=== PATIENT | male | born 1975 | race African-American/Black ===

== ENCOUNTER 2018-02-26 19:05 | Emergency (ER) | payer SELFPAY ==
[~2018-02-26] VITALS: Ht 175.3 cm; Wt 118.6 kg
[~2018-02-26 19:05] MED LIST: Z.0.NO CURRENT MEDS
[2018-02-26 19:09] VITALS: BP 165/81; PULSE 96; RESP 18; TEMP 100.4; O2SAT 98
[2018-02-26] MEDS ORDERED: IBUPROFEN 800 MG TAB PO ONE (19:30)
[2018-02-26] MEDS ORDERED: DEXAMETHASONE SOD PHOS 4 MG/ML VIAL IM ONE (19:30)
[2018-02-26] MEDS ORDERED: AMOXICILLIN/CLAVULANATE K 875 MG TAB PO ONE (19:30)
[2018-02-26] MEDS ORDERED: AUGM875T3 PO (19:44)
--- NOTE | 2018-02-26 19:44 | PD ---
HPI Chief Complaint: ENT Complaint Time Seen by Provider: 19:17 Travel History International Travel<30 days: No Contact w/Intl Traveler<30days: No Traveled to known affect area: No History of Present Illness HPI 42-year-old male here with sore throat 2 days. Subjective fever. No difficulty swallowing although swelling elicits pain. Symptom severity is moderate. No alleviating factors. No associating symptoms. PFSH Past Medical History Medical History: Denies Significant Hx Diminished Hearing: No Tetanus Vaccination: < 5 Years Influenza Vaccination: No ?: Not Social History Alcohol Use: No Tobacco Use: No Substance Use: No Allergies-Medications (Allergen,Severity, Reaction): Coded Allergies: No Known Allergies (Verified , 11/13/12) Reported Meds & Prescriptions Reported Meds & Active Scripts Active Augmentin (Amoxicillin-Clavulanate) 875-125 Mg Tab 1 Tab PO BID Reported No Current Meds (Miscellaneous Medication) Misc Review of Systems Except as stated in HPI: all other systems reviewed are Neg General / Constitutional: Positive: Fever Eyes: No: Visual changes HENT: Positive: Sore Throat Cardiovascular: No: Chest Pain or Discomfort Respiratory: No: Shortness of Breath Gastrointestinal: No: Abdominal Pain Genitourinary: No: Dysuria Physical Exam Narrative GENERAL: Alert and well-appearing 42-year-old male SKIN: Warm and dry. HEAD: Normocephalic. EYES: No scleral icterus. No injection or drainage. ENT: Pharyngeal erythema with moderate tonsillar hypertrophy and scant exudate. Uvula is midline. Airways patent. Normal phonation. Mucous members are moist. NECK: Supple, trachea midline. No lymphadenopathy. CARDIOVASCULAR: Regular rate and rhythm without murmurs, gallops, or rubs. RESPIRATORY: Breath sounds equal bilaterally. No accessory muscle use. GASTROINTESTINAL: Abdomen soft, non-tender, nondistended. MUSCULOSKELETAL: No cyanosis, or edema. BACK: No CVA tenderness. Data Data Last Documented VS Orders Orders Dexamethasone Inj (Decadron Inj) (02/26/18 19:30) Amoxicil-Clavulanate (Augmentin) (02/26/18 19:30) Ibuprofen (Motrin) (02/26/18 19:30) MDM Medical Decision Making Medical Screen Exam Complete: Yes Emergency Medical Condition: Yes Differential Diagnosis Tonsillitis, strep pharyngitis, peritonsillar abscess Narrative Course 42-year-old male here with tonsillitis. He is nontoxic appearing. He does have bilateral tonsillar hypertrophy. Airways patent. He is tolerating oral fluids and medications without difficulty. Stable and ready for discharge per Diagnosis Primary Impression: Tonsillitis Referrals: Primary Care Physician Additional Instructions: Medications as directed. Tylenol and ibuprofen for fever and pain. Drink plenty of fluids. Follow-up with your doctor. Return if he develop new or worsening symptoms. Scripts Amoxicillin-Clavulanate (Augmentin) 875-125 Mg Tab 1 TAB PO BID for Infection, #20 TAB 0 Refills Prov: Lauren Love 02/26/18 Disposition: 01 DISCHARGE HOME Condition: Stable Lauren Love Feb 26, 2018 19:44
[2018-02-26 20:32] VITALS: BP 152/80; TEMP 99.1
== END 2018-02-26 20:38 | disposition home or self-care (01) ==
LOC: PHEFT 19:05
DX: J03.90 Acute tonsillitis, unspecified (principal)
CPT/HCPCS: 96372; 99283; J1100